=== PATIENT | male | born 1995 | race Caucasian/White ===

== ENCOUNTER 2016-12-25 01:22 | Emergency (ER) | payer BC ==
--- NOTE | ~2016-12-25 | ER ---
PATIENT'S NAME: YAMILET [facility] AGE: 21 Y [address] ROOM: [place] [address] LOCATION: ED ADMIT DATE: 12/25/2016 ER/Outpatient Report DISCHARGE DATE: 12/25/2016 FAMILY PHYSICIAN: Physician, Unknown ATTENDING PHYSICIAN: Deepak Fan Admission date and time documented in the medical record. I saw the patient at 0130 hours. CHIEF COMPLAINT: Acute alcohol intoxication and alcohol abuse. HISTORY OF PRESENT ILLNESS: This patient is a 21-year-old male, who celebrated his birthday last night by going out drinking. He drank a moderate amount of alcohol. He is a resident of [facility] on the [facility] [place]. He was found lying on the floor in the restroom there at [facility]. 911 was dispatched. Paramedics brought the patient into the emergency room at [facility] ED for evaluation via ambulance. The patient was awake on arrival. His breath smells of alcoholic beverage. He had no complaints of head pain, neck pain, spine pain, chest pain, abdominal pain, or extremity pain. Denies falling that he can remember. No shortness of breath. He did have some nausea with vomiting. No diarrhea, no incontinence. Denied any recent cold, coughs, flus, fever, chills, or sweats. He did not think that he passed out and that is still questionable. Whether he did pass out or just was sleeping soundly. No skin eruptions or rash. No joint or muscle swelling, redness, or pain. No deformities. No history of neuro changes, psych issues, endocrine problems. HOME MEDICATIONS: None. ALLERGIES: NONE. SOCIAL HISTORY: Nonsmoker. Does chew tobacco. Does use alcohol. SIGNIFICANT PAST MEDICAL HISTORY: Tobacco and alcohol abuse, otherwise negative. OPERATIONS: None. REVIEW OF SYSTEMS: All systems reviewed by me are negative with exception of those discussed in PATIENT'S NAME: YAMILET MAY [facility] AGE: 21 Y [address] ROOM: [place] [address] LOCATION: [facility] ADMIT DATE: 12/25/2016 ER/Outpatient Report DISCHARGE DATE: 12/25/2016 FAMILY PHYSICIAN: Physician, Unknown ATTENDING PHYSICIAN: Deepak Fan the history of present illness. PHYSICAL EXAMINATION: VITAL SIGNS: Temperature 96.4, tympanic; pulse 51; respirations 22; blood pressure 111/65; O2 saturation on room air is 100%. HEAD: Normocephalic. No abrasion, contusion, laceration, swelling of the scalp or face. EYES: Extraocular muscles intact. PERRL. Sclerae and conjunctivae are clear and nonicteric. Ears: Clear TMs bilaterally. NOSE: Clear. THROAT: Clear. Mucous membranes are moist. Breath smells of alcoholic beverage. NECK: No nuchal rigidity. No thyromegaly or cervical adenopathy. SPINE: Nontender. No deformity. LUNGS: Clear. Good air flow. No rales, rhonchi, or wheezes. HEART: Regular. Pulses are palpable. No chest wall or ribcage pain to palpation. No deformity. ABDOMEN: Flat, soft, nondistended, nontender. Active bowel tones. No organomegaly or abnormal masses palpable. No true guarding or rigidity. No rebound tenderness. No CVA tenderness. PELVIS: Stable, nontender. EXTREMITIES: Moves all 4 extremities. No peripheral edema, cyanosis, or deformity. NEURO: Cranial nerves intact. No lateralizing signs. The patient is awake, cooperative. Motor and sensory intact. SKIN: Clear. No skin eruptions or rash. VASCULAR: Intact. LABORATORY DATA: White count is 7700, 54 segs, 32 lymphs, 7 monos, 6 eos, 1 baso. Hemoglobin is 14.8 with hematocrit 42.1, platelet count is 206,000. CMS was normal except for low potassium of 3.6, low calcium of 8.3. Medical blood alcohol was 0.124. EMERGENCY DEPARTMENT COURSE: I did give the patient 2 L of normal saline IV in the emergency room and Zofran 8 mg IV in the emergency room for nausea and vomiting. IMPRESSION: Acute alcohol intoxication and alcohol abuse. PLAN: The patient was dismissed from the emergency room. Observation. Activity as tolerated. Avoid alcohol. Avoid tobacco. Fluids and diet as tolerated. Follow up with personal physician as needed. I did discuss my findings with PATIENT'S NAME: YAMILET MAY [facility] AGE: 21 Y [address] ROOM: [place] [address] LOCATION: [facility] ADMIT DATE: 12/25/2016 ER/Outpatient Report DISCHARGE DATE: 12/25/2016 FAMILY PHYSICIAN: Physician, Kalie ATTENDING PHYSICIAN: Deepak Fan the patient. MD MAN WEBBER/modl /[id number] d: 12/25/16 0420 t: 12/25/16 1820, OUTPATIENT REPORT
[2016-12-25 02:28] LABS: ALBUMIN 3.8 gm/dL (3.5-5.0); ALK PHOS 82 IU/L (33-138); ALT 19 IU/L (12-78); ANION GAP 12.6 (10.0-19.0); AST 19 IU/L (10-40); BLOOD UREA NITROGEN 19 mg/dL (6-24); CALCIUM 8.3 mg/dL (8.5-10.5); CHLORIDE 110 mMol/L (96-110); CO2 24 mMol/L (22-32); POTASSIUM 3.6 mMol/L (3.7-5.1); SODIUM 143 mMol/L (135-145); TOTAL BILIRUBIN 0.2 mg/dL (0.0-1.5); TOTAL PROTEIN 7.1 g/dL (6.0-8.4)
[2016-12-25 02:35] LABS: BASOPHIL # 0.1 K/uL (0.0-0.2); BASOPHIL % 0.8 %; EOSINOPHIL # 0.4 K/uL (0.0-0.5); EOSINOPHIL % 5.7 %; HEMATOCRIT 42.1 % (37.0-53.0); HEMOGLOBIN 14.8 g/dL (12.0-17.0); IMMATURE GRANULOCYTE % 0.5 %; LYMPHOCYTE # 2.4 K/uL (0.8-4.0); LYMPHOCYTE % 31.7 %; MCH 29.8 pg (27.0-34.0); MCHC 35.2 gm/dL (32.0-36.5); MCV 84.9 fl (83.0-98.0); MONOCYTE # 0.5 K/uL (0.0-1.0); MPV 11.3 fl (9.4-12.4); NEUTROPHIL # (ANC) 4.2 K/uL (1.4-9.0); NEUTROPHIL % 54.3 %; NRBC % 0 /100WBC (0-0.00); PLATELET COUNT 206 K/uL (150-450); RBC 4.96 M/uL (4.00-6.00); RDW-CV 12.1 % (11.9-14.6); WBC 7.7 K/uL (4.0-11.0)
== END 2016-12-25 03:41 | disposition disaster alternative care site (69) ==
LOC: GMED 01:22
PROVIDERS: Emergency Medicine
DX: F10.129 Alcohol abuse with intoxication, unspecified (principal); F17.220 Nicotine dependence, chewing tobacco, uncomplicated; Y90.6 Blood alcohol level of 120-199 mg/100 ml
CPT/HCPCS: G0480; J2405; J7030

== ENCOUNTER → 2016-12-25 | Outpatient (CLI) | payer BC | END | disposition disaster alternative care site (69) | LOC: GAMB 00:53 | DX: R41.82 Altered mental status, unspecified (principal); F10.129 Alcohol abuse with intoxication, unspecified; R41.0 Disorientation, unspecified; Z87.820 Personal history of traumatic brain injury; Z87.312 Personal history of (healed) stress fracture ==